=== PATIENT | male | born 1985 | race Caucasian/White ===

== ENCOUNTER → 2020-06-03 08:27 | Outpatient (CLI) | payer OTHER, SELFPAY ==
--- NOTE | ~2020-06-03 | US_ITS ---
EXAMINATION: US abdomen limited EXAM DATE: 06/03/2020 08:42 INDICATION: Thrombocytopenia, unspecified . TECHNIQUE: Multiple grayscale and Doppler images of the spleen were obtained (by a technologist who p erformed the scan) and subsequently reviewed. There is no prior study for comparison. FINDINGS: Spleen measures 12.3 cm diameter by 7.5 cm in thickness, with homogeneous echogenicity. Normal genera lly considered 14 cm or less in maximal dimension. IMPRESSION: 1. Unremarkable spleen Reviewed, dictated and finalized at location A. [employer] IMPRESSION: 1. Unremarkable spleen
== END ==
PROVIDERS: PCP Physician Assistant; Visit Provider Physician Assistant
DX: D73.5 Infarction of spleen (principal); D69.6 Thrombocytopenia, unspecified
CPT/HCPCS: 76705

== ENCOUNTER 2021-06-18 11:51 | Emergency (ER) | payer OTHER, SELFPAY ==
--- NOTE | ~2021-06-18 | XR_ITS ---
EXAMINATION: XR wrist RT min 3V EXAM DATE: 06/18/2021 12:23 INDICATION: rt ulnar wrist pain s/p tricep extension. TECHNIQUE: Right wrist frontal, frontal with ulnar deviation, oblique and lateral projections obtain ed and reviewed. There is no prior study for comparison. FINDINGS: Mildly wide appearing right scapholunate joint space compared to other carpal spaces, could indicate partial dissociation. There are no acute fractures or dislocations identified. There is no subcutaneous gas. There are no radiopaque foreign bodies. IMPRESSION: Possible partial right scapholunate dissociation. Reviewed, dictated and finalized at location A. [employer]
[2021-06-18 12:02] VITALS: BP 139/78; PULSE 68; RESP 15; TEMP 36.3; O2SAT 100
--- NOTE | 2021-06-18 12:48 | ED.GENADULT ---
HPI - General Adult General Chief complaint: Extremity Injury, Upper Stated complaint: WRIST RIGHT Source: patient Mode of arrival: ambulatory Limitations: no limitations History of Present Illness HPI narrative: Patient is a 35-year-old male who presents to the [facility] via POV for evaluation of a right wrist injury that occurred yesterday while working out with weights. He states he felt a pop and a pain with flexion of right wrist. He states his pain is constant and sharp in nature. Denies taking OTC medications for symptoms. Remaining still, ice, and Ziyad wrap provides relief. Movement worsens pain. Related Data Allergies Allergy/AdvReac Type Severity Reaction Status Date / Time No Known Allergies Allergy Unverified 01/05/16 16:09 Review of Systems Review of Systems: Pertinent negatives: fever, chills, sweats, change in appetite, poor p.o. intake, malaise, skin color changes, rash, warmth, swelling, numbness, tingling, loss of sensation, deformity, decreased range of motion, weakness, nausea, vomiting, lymphadenopathy, shortness of breath, chest pain, heart palpitations, and heart murmur. PMFSH Comments I have reviewed and agree with the patient's past medical, surgical, social, and family hx as documented by the RN. There is no relevant family history pertinent to the presenting complaint. Exam Narrative: GENERAL: Well-appearing, well-nourished, and in no acute distress. HEAD: Normocephalic, atraumatic. NECK: Supple. No Lymphadenopathy or nuchal rigidity appreciated. CHEST: Bilateral lung little are clear to auscultation. No respiratory distress. No evidence of cough or pleuritic cp upon examination. HEART: Regular rate and rhythm. No murmur, gallop, or rub heard. EXTREMITIES: Medial aspect of of right wrist is painful upon palpation. Medial aspect of right wrist is also painful with and passive flexion and extension of right wrist. No evidence of injury, decreased ROM, swelling, cyanosis, hematoma, laceration, abrasion, deformity, rash, or puncture. No evidence of dislocation, ligament laxity, effusion, or pain at rest. Pulses palpable at 2+, strength 5/5, and cap refill < 3 seconds in affected extremity. DTRs normal. Gait normal. Right upper extremity pulses are 2+ SKIN: Warm, dry, no rash. NEURO: No focal deficits. Alert and oriented x3. SPECIAL OBSERVATIONS: Smiling. Laughing. Course Vital Signs Vital signs: Vital Signs Temperature 97.3 F L 06/18/21 12:02 Pulse Rate 68 06/18/21 12:02 Respiratory Rate 15 06/18/21 12:02 Blood Pressure 139/78 06/18/21 12:02 Pulse Oximetry 100 06/18/21 12:02 Temperature 97.3 F L 06/18/21 12:02 Pulse Rate 68 06/18/21 12:02 Respiratory Rate 15 06/18/21 12:02 Blood Pressure 139/78 06/18/21 12:02 Pulse Oximetry 100 06/18/21 12:02 Due to an elevated blood pressure, I had a detailed discussion with the patient and/or guardian regarding the need for follow-up with their primary care provider within the next 3-4 days. Patient verbalized understanding and agreed. 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
== END 2021-06-18 12:49 | disposition home or self-care (01) ==
PROVIDERS: Emergency Provider Nurse Practitioner Family; PCP Physician Assistant
DX: S63.501A Unspecified sprain of right wrist, initial encounter (principal); S66.911A Strain of unspecified muscle, fascia and tendon at wrist and hand level, right hand, initial encounter; X50.0XXA Overexertion from strenuous movement or load, initial encounter
CPT/HCPCS: 73110; 99213; G0463

== ENCOUNTER 2022-01-24 13:07 | Emergency (ER) | payer OTHER, SELFPAY ==
[2022-01-24 13:41] VITALS: BP 126/74; PULSE 83; RESP 20; TEMP 36.9; O2SAT 100
--- NOTE | 2022-01-24 14:02 | ED.GENADULT ---
HPI - General Adult General Chief complaint: Wound/Laceration Stated complaint: laceration to finger Time Seen by Provider: 01/24/22 14:02 Source: patient Mode of arrival: ambulatory Limitations: no limitations History of Present Illness HPI narrative: 36-year-old male patient presents to the [facility] with complaints of a laceration to the left thumb. Patient states he had a healing take at home after using it for birthday libertarian and was trying to recycle it. Patient states he pulled off of the aluminum tab and states he cut his left thumb. Patient states he has some issues sometimes with clotting and states after an hour when it did not stop bleeding he decided to come appear to be seen. Patient unsure when his last tetanus shot was. Related Data Home Medications Medication Instructions Recorded Confirmed sertraline 50 mg tablet tablet 01/24/22 Allergies Allergy/AdvReac Type Severity Reaction Status Date / Time No Known Allergies Allergy Unverified 01/05/16 16:09 Review of Systems Review of Systems: CONSTITUTIONAL: Denies fever, chills, or sweats. EYES: Denies visual changes, redness, or discharge. ENT: Denies rhinorrhea, congestion, sore throat, or otalgia. CARDIOVASCULAR: Denies chest pain, palpitations, or edema. RESPIRATORY: Denies cough or dyspnea. GASTROINTESTINAL: Denies abdominal pain, nausea, vomiting, or diarrhea. GENITOURINARY: Denies dysuria or hematuria. SKIN: Denies rash or itching. Positive laceration to the left thumb MUSCULOSKELETAL: Denies back pain, joint pain, or myalgia. NEUROLOGIC: Denies headache, numbness, or weakness. PSYCHIATRIC: Denies anxiety or depression. [facility] Past Medical History Medical History (Updated 01/24/22 @ 14:23 by ALEJANDRA Xiao) Thrombocytopenia Comments At the time of my signature I agree with nursing past medical history, surgical, social, and family history. There is no relevant family history pertinent to the presenting complaint. Exam Narrative: GENERAL: Well-appearing, well-nourished, and in no acute distress. HEAD: Normocephalic, atraumatic. EYES: PERRLA and EOMI. ENT: Nares clear, no rhinorrhea or epistaxis. Mucous membranes moist. NECK: Supple. No lymphadenopathy CHEST: Clear to auscultation. No respiratory distress. HEART: Regular rate and rhythm. No murmur heard. Normal peripheral pulses. ABDOMEN: Soft, nontender, nondistended, normal active bowel sounds. EXTREMITIES: Normal range of motion. No edema. SKIN: Warm, dry, no rash. Patient has approximately 1 cm superficial laceration that is well approximated to the thumb. No gaping wound noted. No fat exposed. Bleeding is well controlled at this time. NEURO: No focal deficits. Alert and oriented x3. Course Course Level of Care: Express Care Visit Vital Signs Vital signs: Vital Signs Temperature 36.9 C 01/24/22 13:41 Pulse Rate 83 01/24/22 13:41 Respiratory Rate 20 01/24/22 13:41 Blood Pressure 126/74 01/24/22 13:41 Pulse Oximetry 100 01/24/22 13:41 Oxygen Delivery Room Air 01/24/22 13:41 Temperature 36.9 C 01/24/22 13:41 Pulse Rate 83 01/24/22 13:41 Respiratory Rate 20 01/24/22 13:41 Blood Pressure 126/74 01/24/22 13:41 Pulse Oximetry 100 01/24/22 13:41 Oxygen Delivery Room Air 01/24/22 13:41 Vital signs reviewed Procedures Laceration Laceration 1: Date: 01/24/22 Time: 14:24 Site: hand (Thumb) Side (If applicable): left Size (cm): 1 Description: linear Depth: simple, single layer Local Anesthetic: none Pre-repair: irrigated ====== Skin Level ====== ====== Subcutaneous Layer ====== ====== Muscle Layer ====== ====== Tendon Layer ====== Dressing: The Procedure was explained and verbal consent was obtained. Copious irrigation was done with saline and Shur-Clens and the wound was explored. There was no foreign body or deep structure injury not
[2022-01-24] MEDS: TETANUS,DIPHTHERIA,AC PERTUSSIS ADULT (0.5 ML) BOOSTRIX IM (14:21)
== END 2022-01-24 14:43 | disposition home or self-care (01) ==
PROVIDERS: Emergency Provider Nurse Practitioner Family; PCP Physician Assistant
DX: S61.012A Laceration without foreign body of left thumb without damage to nail, initial encounter (principal); W45.8XXA Other foreign body or object entering through skin, initial encounter; Z23 Encounter for immunization; D69.6 Thrombocytopenia, unspecified
CPT/HCPCS: 12001; 90471; 90715; 99212; G0463

== ENCOUNTER → 2023-03-26 11:03 | Outpatient (CLI) | payer OTHER, SELFPAY ==
--- NOTE | ~2023-03-26 | CT_ITS ---
EXAMINATION: CT abdomen pelvis wo/w con DATE: 03/26/2023 11:42 INDICATION: Hematuria and left flank pain TECHNIQUE: Computed tomography (CT) of the abdomen and pelvis was performed without intravenous contr ast. CT of the abdomen and pelvis was then performed with a total of 130 mL Omnipaque 350 intravenous contrast using a double-bolus technique for simultaneous opacification of the renal parenchyma and r enal collecting system. The dose-length product (DLP) was 1740.00 mGy-cm. Automated exposure control and iterative reconstruction technique were employed. COMPARISON: None FINDINGS: The lung bases are clear. The heart size is normal. The liver, spleen, pancreas, gallbladde r, and adrenal glands are normal. The kidneys are unremarkable. No stones are identified in the kidne ys, ureters, or bladder. No hydronephrosis or hydroureter. No suspicious renal or urothelial lesion i dentified. No pathologically enlarged abdominal or pelvic lymph nodes are identified. No free intrape ritoneal gas or evidence of bowel obstruction. The appendix is normal. There is mild lumbar spondylos is at L5-S1. IMPRESSION: 1. No CT correlate for the patient's symptoms. Reviewed, dictated and finalized at location B.
[2023-03-26 11:19] LABS: Estimated Glomerular Filt Rate > 60
== END ==
PROVIDERS: PCP Physician Assistant; Visit Provider Physician Assistant
DX: R31.9 Hematuria, unspecified (principal); F17.200 Nicotine dependence, unspecified, uncomplicated
CPT/HCPCS: 74178; Q9967